=== PATIENT | female | born 1990 | race Caucasian/White ===

== ENCOUNTER 2021-10-31 14:02 | Outpatient (REF) | payer OTHER, SELFPAY ==
[2021-10-31 15:09] LABS: Influenza A PCR NEGATIVE (Negative); Influenza B PCR NEGATIVE (Negative); Resp Syncy Virus RNA Qual PCR NEGATIVE (Negative); SARS COV2 PCR INHOUSE POSITIVE (Negative)
== END 2021-10-31 14:03 | disposition home or self-care (01) ==
LOC: HO.LNP 14:02
PROVIDERS: Visit Provider Internal Medicine
DX: Z20.822 Contact with and (suspected) exposure to COVID-19 (principal); R05.9 Cough, unspecified; R50.9 Fever, unspecified
CPT/HCPCS: 0241U

== ENCOUNTER 2021-11-12 14:08 | Outpatient (REF) | payer OTHER, SELFPAY | END 2021-11-12 14:09 | disposition home or self-care (01) | LOC: HO.XRAY 14:08 | PROVIDERS: PCP Internal Medicine; Visit Provider Internal Medicine | DX: Z13.89 Encounter for screening for other disorder (principal) ==

== ENCOUNTER 2021-11-13 16:21 | Outpatient (REF) | payer OTHER, SELFPAY ==
--- NOTE | ~2021-11-13 | XR_ITS ---
EXAMINATION: XR SINUSES CLINICAL INFORMATION: Sinus pain and congestion COMPARISON: None TECHNIQUE: 4 views of the facial sinuses FINDINGS: Suggestion of mild mucosal thickening of the bilateral maxillary sinuses, left greater than right. Patency of the remaining sinuses. Osseous structures are intact. No acute visible fracture or dislocation. Dental hardware is noted. XR/XR sinus min 3V IMPRESSION: 1. Suggestion of mild mucosal thickening of the bilateral maxillary sinuses, left greater than right. 2. Patency of the remaining sinuses. 3. Osseous structures are intact.
== END 2021-11-13 16:22 | disposition home or self-care (01) ==
LOC: HO.XRAY 16:21
PROVIDERS: PCP Internal Medicine; Visit Provider Internal Medicine
DX: J34.89 Other specified disorders of nose and nasal sinuses (principal); R09.81 Nasal congestion
CPT/HCPCS: 70220

== ENCOUNTER 2025-05-18 10:29 | Outpatient (AMB) | payer OTHER, SELFPAY ==
--- NOTE | 2025-05-18 10:31 | A.OFFPC_ITS ---
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 Still has elevated anxiety levels. Had buspar prescribed On zithromax for tooth infection. She is going in for a multiple hour procedure Reactive airway disease-no formal diagnosis asthma but does require albuterol when she gets sick GERD-On omeprazole ROS see HPI PHYSICAL EXAM: GENERAL: Alert and oriented x 3. NAD EYES: EOMI. Anicteric. HENT: Moist mucous membranes. No scleral icterus. thyroid enlargement LUNGS: Clear to auscultation bilaterally. CARDIOVASCULAR: Regular rate and rhythm. No murmur. No JVD. ABDOMEN: Soft, non-tender +bs EXTREMITIES: No edema. Non-tender. SKIN: No rashes or lesions. Warm. NEUROLOGIC: No focal neurological deficits. CN II-XII grossly intact PSYCHIATRIC: Cooperative. Appropriate mood and affect [facility] Social History Patient Tobacco Use Status: Never used Tobacco e-Cigarette/Vaping Use: Never Used Questionnaire PHQ-9 Over the last 2 weeks, how often have you been bothered by any of the following problems? 1. Little interest or pleasure in doing things: not at all 2. Feeling down, depressed, or hopeless: not at all 3. Trouble falling or staying asleep, or sleeping too much: several days 4. Feeling tired or having little energy: several days 5. Poor appetite or overeating: not at all 6. Feeling bad about yourself - or that you are a failure or have let yourself or your family down: not at all 7. Trouble concentrating on things, such as reading the newspaper or watching television: not at all 8. Moving or speaking so slowly that other people could have noticed. Or the opposite - being so fidgety or restless that you have been moving around a lot more than usual: not at all 9. Thoughts that you would be better off or of hurting yourself in some way: not at all Total score: 2 Depression Screening Interpretation: Negative Depression Screening Done: Yes 47477 - PHQ-9 Billing: Yes Source: Developed by Drs. Zev Hughes, Karena Millard, Chito Amaya and colleagues, with an educational rogelio from [employer]. Thrive Questionnaire Date Thrive assessed: 05/18/25 I am a: Patient What is your living situation today?: I have a steady place to live Within the past 12 months, did the food you bought not last and you didn't have the money to get more?: Never true Within the past 12 months, did you worry whether your food would run out before you got money to buy more?: Never true Do you have trouble paying for medicines?: No Do you have trouble getting transportation to medical appointments?: No Do you have trouble paying your heating and electricity bill?: No Do you have trouble taking care of your child, family member or friend?: No Do you have trouble with day-to-day activities such as bathing, preparing meals, shopping, managing finances, etc.?: No Are you currently unemployed and looking for a job?: No Are you interested in more education?: Yes THRIVE Score: 0 AUDIT C Alcohol Use Questionnaire (AUDIT-C) 1. How often do you have a drink containing alcohol?: Monthly or less 2. How many drinks containing alcohol do you have on a typical day when you are drinking?: 1 or 2 Total Score: 1 BRAD-7 AMB Questionnaire BRAD-7 Date BRAD - 7 assessed: 05/18/25 Feeling nervous, anxious, or on edge: 1 = Several days Not being able to stop or control worryin = Several days Worrying too much about different things: 1 = Several days Trouble relaxin = Several days Being so restless that it is hard to sit still: 1 = Several days Becoming easily annoyed or irritable: 0 = Not at all Feeling afraid as if something awful might happen: 1 = Several days Total BRAD-7 score (0-4 normal; 5-9 mild; 10-14 moderate; 15-21 severe): 6 Source: Developed by Drs. Zev Hughes, Karena Millard, Chito Amaya and colleagues, with an educational rogelio from [employer]. Physical exam (Primary Care) Vital Signs: Last Vital Signs Temp 97.5 F 05/18/25 10:37 Pulse 76 05/18/25 10:37 Resp 16 05/18/25 10:37 BP 98/54 L 05/18/25 10:37 Pulse Ox 98 05/18/25 10:37 Oxygen Delivery Method Room Air 05/18/25 10:37 BMI result Body Mass Index 21.5 Tobacco/Smoking Status: Tobacco use Status Tobacco use date assessed 05/18/25 05/18/25 10:39 Patient Tobacco Use Status Never used Tobacco 05/18/25 10:39 e-Cigarette/Vaping Use Never Used 05/18/25 10:39 PHQ-9: PHQ-9 Score PHQ-9: Total score 2 05/21/25 21:28 Depression Screening Interpretation: Negative Thrive Assessment: Date of Thrive Assessment Date Thrive assessed 05/18/25 05/18/25 11:21 Coding Level of Care Code Est Pt Level 4 (87313) Diagnoses Physical exam Z00.00 Anxiety F41.9 Enlarged thyroid E04.9 Abnormal menses N92.6 Additional Codes PHQ-9 - 50258 - PHQ-9 Billing: Yes ([id number]) Assessment & Plan Assessment & Plan (1) Physical exam: Code(s): Z00.00 - Encounter for general adult medical examination without abnormal findings Category: Medical (2) Anxiety: Code(s): F41.9 - Anxiety disorder, unspecified Category: Medical (3) Enlarged thyroid: Code(s): E04.9 - Nontoxic goiter, unspecified Category: Medical (4) Abnormal menses: Code(s): N92.6 - Irregular menstruation, unspecified Category: Medical Plan 34 year old for physical exam Past medical, surgical, social reviewed Preventive measures for age discussed anxiety suboptimal-trial buspar-she already has this Abnormal 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 Panel 05/18/25 F41.9 - Anxiety disorder, unspecified, N92.6 - Irregular menstruation, unspecified, R35.89 - Other polyuria, Z13.0 - Encounter for screening for diseases of the blood and blood-forming organs and certain disorders involving the immune mechanism, Z13.228 - Encounter for screening for other metabolic disorders Hemoglobin A1c 05/18/25 F41.9 - Anxiety disorder, unspecified, N92.6 - Irregular menstruation, unspecified, R35.89 - Other polyuria, Z13.0 - Encounter for screening for diseases of the blood and blood-forming organs and certain disorders involving the immune mechanism, Z13.228 - Encounter for screening for other metabolic disorders Complete Blood Count Auto Diff 05/18/25 F41.9 - Anxiety disorder, unspecified, N92.6 - Irregular menstruation, unspecified, R35.89 - Other polyuria, Z13.0 - Encounter for screening for diseases of the blood and blood-forming organs and certain disorders involving the immune mechanism, Z13.228 - Encounter for screening for other metabolic disorders LDL Cholesterol Direct 05/18/25 F41.9 - Anxiety disorder, unspecified, N92.6 - Irregular menstruation, unspecified, R35.89 - Other polyuria, Z13.0 - Encounter for screening for diseases of the blood and blood-forming organs and certain disorders involving the immune mechanism, Z13.228 - Encounter for screening for other metabolic disorders TSH reflex Free T4 05/18/25 F41.9 - Anxiety disorder, unspecified, N92.6 - Irregular menstruation, unspecified, R35.89 - Other polyuria, Z13.0 - Encounter for screening for diseases of the blood and blood-forming organs and certain disorders involving the immune mechanism, Z13.228 - Encounter for screening for other metabolic disorders Referrals SPEECH THERAPY TEACHER Referral N92.6 - Irregular menstruation, unspecified, Z12.4 - Encounter for screening for malignant neoplasm of cervix Medications: New omeprazole 20 mg PO DAILY 90 caps 3RF
[2025-05-18 10:37] VITALS: BP 98/54; PULSE 76; RESP 16; TEMP 36.4; O2SAT 98; BMI 21.5
--- OUTSIDE RECORDS SUMMARY | 2025-05-18 11:01 | XMS_ITS | Encounter Summary ---
Author Organization [facility] Address [address] [place] [phone] Phone Care Team Providers Care Tube Lancer Name Role Phone Bhakti Morataya MD Primary Care Provider Unava ilable Encounter Details Date Type Department Care Team (Late st Contact Info) Description 09/09/2010 Documentation EM Family Medicine [address] [place] [address] Family Medicine, Physician [address], [place] [id number] Social History Tobacco Use Types Packs/Day Years Used Date Smoking Tobacco: Never Assessed Comments Unknown Sex and Gender Information Value Date Recorded Sex Assigned at Not on file Legal Sex Female 4:54 PM EDT Gender Identity Not on file Sexual Orientation Not on file documented as of this encounter Plan of Treatment Not on file documented as of this encounter Visit Diagnoses Not on filedocumented in this encounter Care Teams Tube Lancer Relationship Specialty Start Date End Date Bhakti Morataya MD PCP - General 06/12/17 documented as of this encounter
== END 2025-05-18 11:02 | disposition home or self-care (01) ==
LOC: HO.HMCHD 10:29
PROVIDERS: PCP Internal Medicine; Visit Provider Internal Medicine
DX: Z00.00 Encounter for general adult medical examination without abnormal findings (principal); F41.9 Anxiety disorder, unspecified; E04.9 Nontoxic goiter, unspecified; N92.6 Irregular menstruation, unspecified

== ENCOUNTER 2025-05-18 10:29 | Outpatient (REF) | payer OTHER, SELFPAY ==
[2025-05-18 11:21] LABS: MANUAL DIFF FLAG NO
[2025-05-18 11:52] LABS: Hematocrit 39.7 % (37.0-47.0); Hemoglobin 13.0 g/dl (12.0-16.0); Imm Gran Abs Auto 0.01 X10*3/uL (0.00-0.03); Imm Gran Pct Auto 0.2 % (0.0-0.4); Lymphocytes Absolute Auto 1.9 X10*3/uL (1.2-4.9); Mean Corpuscular HGB Conc 32.7 g/dl (31.0-35.0); Mean Corpuscular Hemoglobin 30.9 pg (27.0-33.0); Mean Corpuscular Volume 94.3 fL (80.0-98.0); NRBC Abs Auto 0.000 X10*3/uL (0.0-0.012); NRBC Pct Auto 0.0 /100WBC (0.0-0.2); Platelet Count 258 X10*3/uL (160-400); Red Blood Count 4.21 X10*6/uL (4.20-5.50); White Blood Count 4.2 X10*3/uL (4.8-10.8)
[2025-05-18 12:03] LABS: Hemoglobin A1C 113.1191 umol/L; Total Hemoglobin (HGBA1C) 3379.4435 umol/L
[2025-05-18 12:29] LABS: Alanine Aminotransferase 35 U/L (0-31); Albumin Level 4.0 g/dL (3.5-5.0); Alkaline Phosphatase 61 U/L (39-117); Anion Gap 9 (12-20); Aspartate Amino Transferase 24 U/L (5-31); Blood Urea Nitrogen 16 mg/dL (9-16); Calcium 8.6 mg/dL (8.4-10.2); Carbon Dioxide 27 mmol/L (22-29); Chloride 111 mmol/L (96-108); Estimated Glomerular Filt Rate > 60; Potassium 3.6 mmol/L (3.3-5.1); Sodium 143 mmol/L (135-145); Total Protein 6.5 g/dL (6.5-8.0)
== END 2025-05-18 10:30 | disposition home or self-care (01) ==
LOC: HO.LAB 10:29
PROVIDERS: PCP Internal Medicine; Visit Provider Internal Medicine
DX: Z00.00 Encounter for general adult medical examination without abnormal findings (principal); F41.9 Anxiety disorder, unspecified; E04.9 Nontoxic goiter, unspecified; N92.6 Irregular menstruation, unspecified; R35.89 Other polyuria; Z13.0 Encounter for screening for diseases of the blood and blood-forming organs and certain disorders involving the immune mechanism; Z13.228 Encounter for screening for other metabolic disorders; Z13.31 Encounter for screening for depression; Z13.39 Encounter for screening examination for other mental health and behavioral disorders
CPT/HCPCS: 36415; 80053; 83036; 83721; 84443; 85025; 96127; 99212

== ENCOUNTER 2025-08-24 10:52 | Outpatient (AMB) | payer OTHER, SELFPAY ==
[2025-08-24 09:26] VITALS: BP 120/72; PULSE 74; TEMP 36.3; O2SAT 99; BMI 36.5
--- NOTE | 2025-08-24 09:26 | A.OFFPC_ITS ---
Vital Signs 08/24/25 09:26 Height 5 ft 10 in Weight 254 lb 2 oz BMI 36.5 BP 120/72 Blood Pressure Location Rt brachial Position Sitting Pulse 74 Pulse Source Pulse Oximeter Temp 97.3 F Temp Source Temporal Artery Scan Pulse Oximetry (%) 99 Oxygen Delivery Method Room Air Intake Visit Reasons: 3 month f/u Cook Specialty Foreign Food Required: No Accompanied by: Mother Allergies amoxicillin (From Augmentin) Allergy (Intermediate, Verified 08/24/25 09:27) Rash clavulanic acid (From Augmentin) Allergy (Intermediate, Verified 08/24/25 09:27) Rash Medication List - Last Reconciled 09/10/25 by ALBERTO Briceño albuterol sulfate 90 mcg/actuation 2 inhalations inhalation Q6H PRN buspirone 10 mg PO BID citalopram 40 mg PO DAILY ibuprofen 800 mg PO TID inhalational spacing device (Aerochamber Mechanical Vent) As directed omeprazole 20 mg PO DAILY Tobacco use date assessed: 08/24/25 Dental Screening Dental Screen Date: 08/24/25 Did you have a dental visit in the last 12 months?: Yes Did you have a dental problem in the last 6 months where you did not have access to dental care?: No HPI HPI Comments History of Present Illness Details The patient is a 34-year-old female with Asthma, anxiety/MDD, insomnia, GERD and Obesity presenting to establish care and follow up of asthma management, anxiety, and menstrual irregularities. The patient has a history of asthma, primarily requiring an albuterol inhaler during the summer and fall seasons. She reports needing a refill for her inhaler and an aero chamber as the current inhaler is old. The patient experiences anxiety with fluctuating levels, and she is currently on citalopram. There is a discussion about starting buspirone, but the patient expresses fear of trying new medication. She has not yet engaged with a therapist but is actively seeking one. The patient reports a tooth infection following dental work, which included upper and lower teeth repairs. She was prescribed azithromycin for the infection and has been using ibuprofen for pain management. The patient takes omeprazole daily for gastroesophageal reflux disease (GERD). She is advised to continue daily use if experiencing heartburn more than two to three times a week to prevent complications such as strictures or cancer. Menstrual irregularities are noted, with periods occurring every two to three months. The patient is scheduled for a gynecological evaluation to investigate potential causes, including polycystic ovarian syndrome. The patient describes occasional gastrointestinal symptoms, including nausea and diarrhea, possibly linked to anxiety or dietary factors. There is a consideration of irritable bowel syndrome, and the patient is advised to monitor symptoms and report any increase in frequency. Medical History: - Asthma - Anxiety - Gastroesophageal reflux disease (GERD) Surgical History: - Dental repairs (upper and lower teeth) She had labs done in May. She has an appointment pending with ACCOUNTANT CONTROLLER Patient was informed and verbally consented to the use of an ambient scribe for clinic note documentation during this visit. [facility] Medical History (Updated 09/10/25 @ 22:52 by ALBERTO Briceño) Asthma GERD (gastroesophageal reflux disease) IBS (irritable bowel syndrome) Obesity (BMI 35.0-39.9 without comorbidity) Family History (Updated 08/24/25 @ 11:05 by Elba Nixon MA) Mother No problems noted. Father No problems noted. Social History Housing: House Patient Tobacco Use Status: Never used Tobacco e-Cigarette/Vaping Use: Never Used service: No Current occupational status: employed Cognitive needs: No Hearing needs: No Vision needs: Yes (Reading glasses) Questionnaire PHQ-9 Over the last 2 weeks, how often have you been bothered by any of the following problems? 1. Little interest or pleasure in doing things: not at all 2. Feeling down, depressed, or hopeless: several days (some anxiety) 3. Trouble falling or staying asleep, or sleeping too much: several days (sometimes sleepling too much and sometimes trouble falling asleep. ) 4. Feeling tired or having little energy: not at all 5. Poor appetite or overeating: not at all 6. Feeling bad about yourself - or that you are a failure or have let yourself or your family down: not at all 7. Trouble concentrating on things, such as reading the newspaper or watching television: not at all 8. Moving or speaking so slowly that other people could have noticed. Or the opposite - being so fidgety or restless that you have been moving around a lot more than usual: not at all 9. Thoughts that you would be better off or of hurting yourself in some way: not at all Total score: 2 Depression Screening Interpretation: Negative Depression Screening Done: Yes Source: Developed by Drs. Zev Hughes, Chito Jones and colleagues, with an educational rogelio from [employer]. Thrive Questionnaire Date Thrive assessed: 08/24/25 I am a: Patient Within the past 12 months, did the food you bought not last and you didn't have the money to get more?: Never true Within the past 12 months, did you worry whether your food would run out before you got money to buy more?: Never true Do you have trouble paying for medicines?: No Do you have trouble getting transportation to medical appointments?: No Do you have trouble paying your heating and electricity bill?: No Do you have trouble taking care of your child, family member or friend?: No Do you have trouble with day-to-day activities such as bathing, preparing meals, shopping, managing finances, etc.?: No Are you currently unemployed and looking for a job?: No Are you interested in more education?: No THRIVE Score: 0 AUDIT C Alcohol Use Questionnaire (AUDIT-C) 1. How often do you have a drink containing alcohol?: Monthly or less 2. How many drinks containing alcohol do you have on a typical day when you are drinking?: 1 or 2 3. How often do you have six or more drinks on one occasion?: Less than monthly Total Score: 2 BRAD-7 AMB Questionnaire BRAD-7 Date BRAD - 7 assessed: 08/24/25 Feeling nervous, anxious, or on edge: 0 = Not at all Not being able to stop or control worryin = Not at all Worrying too much about different things: 0 = Not at all Trouble relaxin = Not at all Being so restless that it is hard to sit still: 0 = Not at all Becoming easily annoyed or irritable: 0 = Not at all Feeling afraid as if something awful might happen: 0 = Not at all Total BRAD-7 score (0-4 normal; 5-9 mild; 10-14 moderate; 15-21 severe): 0 Source: Developed by Karena Rosas Kurt Kroenke and colleagues, with an educational rogelio from [employer]. Review of Systems Narrative - Respiratory: Reports asthma symptoms primarily in summer and fall. Denies current respiratory distress. - Psychiatric: Reports fluctuating anxiety levels. Denies current use of buspirone. - Gastrointestinal: Reports nausea and diarrhea occasionally. Denies consistent gastrointestinal distress. - Reproductive: Reports menstrual irregularities with periods every two to three months. Denies pain during menstruation. Physical exam (Primary Care) Vital Signs: Last Vital Signs Temp 97.3 F 08/24/25 09:26 Pulse 74 08/24/25 09:26 BP 120/72 08/24/25 09:26 Pulse Ox 99 08/24/25 09:26 Oxygen Delivery Method Room Air 08/24/25 09:26 BMI result Body Mass Index 36.5 GENERAL Well developed, obese, in no apparent distress HEENT Head-Normocephalic Eyes- PERRLA, EOMI, Conjuctiva clear, lids WNL Ears- Canals clear, TMs WNL Mouth/Throat-No lesions, no erythema, no exudate Neck- Supple, No lymphadenopathy, thyroid WNL RESPIRATORY Normal I:E, Clear to auscultation CARDIOVASCULAR Regular, rate and rhythm, No murmurs or rubs GASTROINTESTINAL Soft, nontender, normal bowel sounds, no masses MUSCULOSKELETAL Back- nontender Joints- no swelling or deformity NEUROLOGICAL Gait normal PSYCHIATRIC Oriented to person, place and time Mood and affect anxiety and depression Appearance WNL Speech WNL Thought processes WNL Tobacco/Smoking Status: Tobacco use Status Tobacco use date assessed 08/24/25 08/24/25 09:28 Patient Tobacco Use Status Never used Tobacco 08/24/25 09:28 e-Cigarette/Vaping Use Never Used 08/24/25 09:28 PHQ-9: PHQ-9 Score PHQ-9: Total score 2 08/24/25 11:07 Depression Screening Interpretation: Negative Thrive Assessment: Date of Thrive Assessment Date Thrive assessed 08/24/25 08/24/25 09:28 Coding Level of Care Code Established Pt Est Pt Level 4 (59914) Patient Type Established Diagnoses Anxiety F41.9 Abnormal menses N92.6 Mild intermittent asthma without complication J45.20 Asthma severity: mild Asthma persistence: intermittent Asthma complication type: uncomplicated GERD (gastroesophageal reflux disease) K21.9 IBS (irritable bowel syndrome) K58.9 Obesity (BMI 35.0-39.9 without comorbidity) E66.9 Time Spent (min) 30 Comment Time spent on chart review, medication reconciliation, H&P, Patient education and orders Assessment & Plan Assessment & Plan (1) Anxiety: Code(s): F41.9 - Anxiety disorder, unspecified Category: Medical Plan: The patient is currently on citalopram for anxiety management. There is a consideration for starting buspirone, but the patient is hesitant due to fear of new medications. She is advised to continue seeking therapy for better management of anxiety symptoms. Patient to follow up in 6 months or sooner if symptoms persist or worsen. (2) Abnormal menses: Code(s): N92.6 - Irregular menstruation, unspecified Category: Medical Plan: The patient is scheduled for a gynecological evaluation to investigate menstrual irregularities, with consideration of polycystic ovarian syndrome as a potential cause. (3) Asthma: Code(s): J45.909 - Unspecified asthma, uncomplicated Category: Medical Qualifiers: Asthma severity: mild Asthma persistence: intermittent Asthma complication type: uncomplicated Qualified Code(s): J45.20 - Mild intermittent asthma, uncomplicated Plan: The patient requires a refill of her albuterol inhaler and an aero chamber for asthma management, particularly during the summer and fall seasons when symptoms are more prevalent. (4) GERD (gastroesophageal reflux disease): Code(s): K21.9 - Gastro-esophageal reflux disease without esophagitis Category: Medical Plan: The patient is advised to continue taking omeprazole daily if experiencing frequent heartburn to prevent complications such as esophageal strictures or cancer. If heartburn is less frequent, she may use it as needed. (5) IBS (irritable bowel syndrome): Code(s): K58.9 - Irritable bowel syndrome, unspecified Category: Medical Plan: The patient is advised to monitor gastrointestinal symptoms, including nausea and diarrhea, which may be linked to anxiety or dietary factors. She should report any increase in frequency for further evaluation. (6) Obesity (BMI 35.0-39.9 without comorbidity): Comment: BMI today was 36.5 Code(s): E66.9 - Obesity, unspecified Category: Medical Plan: Discussed the health risks of obesity with the patient. Reviewed benefits of even moderate weight loss with the patient. Patient will gradually try and increase exercise to 30-40 min 5-7 times per week. We discussed the patient add ing more fruits and vegetables to their diet. Will monitor weight and follow up in 6 months. Plan During the visit, we discussed the management of asthma, including the need for a refill of the albuterol inhaler and aero chamber. We also talked about anxiety management, with the patient currently on citalopram and considering buspirone. The importance of therapy was emphasized. For the tooth infection, the patient is on azithromycin and ibuprofen, with a recommendation for dental follow-up if symptoms persist. We reviewed the use of omeprazole for GERD and the need for daily use if heartburn is frequent. Menstrual irregularities are being evaluated with a gynecological appointment scheduled. We also discussed monitoring gastrointestinal symptoms that may suggest irritable bowel syndrome. Medications: New inhalational spacing device (Aerochamber Mechanical Vent) As directed 50 ea 0RF Changed From albuterol sulfate 90 mcg/actuation 2 inhalations inhalation Q6H PRN To albuterol sulfate 90 mcg/actuation 2 inhalations inhalation Q6H PRN 1 ea 3RF shortness of breath or wheezing Patient Instructions: - Refill albuterol inhaler and obtain an aero chamber for asthma management. - Continue citalopram for anxiety and seek therapy. - Complete the course of azithromycin and use ibuprofen as needed for tooth infection pain. - Take omeprazole daily if experiencing frequent heartburn. - Attend scheduled gynecological evaluation for menstrual irregularities. - Monitor gastrointestinal symptoms and report any increase in frequency.
--- OUTSIDE RECORDS SUMMARY | 2025-08-24 13:26 | XMS_ITS | Clinical Summary ---
Author Organization [facility] Address [address] [place] [id number] Phone Care Team Providers Care Health Facilities Surveyor Name Role Phone Bhakti Morataya MD Primary Care Provider Unava ilable Immunizations Immunization Administration Dates Next Due DTaP 5 12/02/1997, 4,08/01/1993,06/01,04/01/1993 HPV, Quadrivalent 11/17/2013,06/21/2012,01/15/20 12 Hep B, ped/adol 11/01/1993,04/01/1993,1992 Hib (HbOC) 07/02/1994, 3,06/01/1993,04/01 IPV 12/02/1997, 4,06/01/1993,04/01 MMR 12/02/1997,06/01/1994 Meningococcal Conj (Menactra) MCV4P 11/16/2007 Td (adult) (MBL), 2 Lf tetan us toxoid, PF, adsorbed 02/05/2005 Tdap 04/23/2011 Varicella 08/24/1997 Family History Relation Name Status Comments Brother Alive Brother: Health y Father Alive Father: Hyperte nsion Maternal Grandfather Alive Materna l uncle: Langerhand Syndrome,Asbestosis, Aortic Regurgitation Maternal Grandmother Materna l grandmother: , Cancer -ovarian Mother Alive Mother: Asthma Paternal Grandfather Alive Paterna l uncle: Myocardial infarction Paternal Grandmother Paterna l grandmother: , Diabetes mellitus Sister Alive Sister: GERD,Co nstipation,IBS Social History Tobacco Use Types Packs/Day Years Used Date Smoking Tobacco: Never Comments:Never smoker Comments Unknown Sex and Gender Information Value Date Recorded Sex Assigned at Not on file Legal Sex Female 4:54 PM EDT Gender Identity Not on file Sexual Orientation Not on file Last Filed Vital Signs Vital Sign Reading Time Taken Comments Blood Pressure 102/70 08/24/2014 12:00 AM EDT Pulse 88 08/24/2014 12:00 AM EDT Temperature 37.1 C (98.7 F) 08/26/2014 12:00 AM EDT Respiratory Rate - - Oxygen Saturation 96% 08/26/2014 12:00 AM EDT Inhaled Oxygen Concentration - - Weight 56.7 kg (125 lb) 08/31/2014 12:00 AM EDT Height 175.9 cm (5' 9.25 ) 08/31/2014 12:00 AM E DT Body Mass Index 18.33 08/31/2014 12:00 AM EDT Plan of Treatment Health Maintenance Due Date Last Done Comments Varicella Vaccines (2 of 2 - 2-dose childhood series) 12/30/1997 08/24/1997 DTaP,Tdap,and Td Vaccines (7 - Td or Tdap) 04/23/2021 04/23/2011, 02/05/2005, 12/02/1997, Additional history exists Influenza Vaccines (#1) 2025 COVID-19 Vaccine ( season) 2025 Hepatitis B Vaccines Completed 11/01/1993, 04/01/1993, 1992 HIB Vaccines Completed 07/02/1994, 07/05, 06/01/1993, Additional history exists IPV Vaccines Completed 12/02/1997, 06/04, 06/01/1993, Additional history exists MMR Vaccines Completed 12/02/1997, 06/01/1994 Meningococcal Vaccine Aged Out 11/16/2007 No poncho jamar eligible based on patient's age to complete this topic HPV Vaccines Completed 11/17/2013, 06/03, 01/15/2012 Hepatitis A Vaccines Aged Out No long er eligible based on patient's age to complete this topic Men B Vaccine Aged Out No longer elig ible based on patient's age to complete this topic Pneumococcal Vaccine Aged Out No long er eligible based on patient's age to complete this topic Care Teams Health Facilities Surveyor Relationship Specialty Start Date End Date Bhakti Morataya MD PCP - General 06/12/17
--- OUTSIDE RECORDS SUMMARY | 2025-08-24 13:26 | XMS_ITS | Encounter Summary ---
Author Organization [facility] Address [address] [place] [phone] Phone Care Team Providers Care Nailing Machine Operator Automatic Name Role Phone Bhakti Morataya MD Primary Care Provider Unava ilable Encounter Details Date Type Department Care Team (Late st Contact Info) Description 09/09/2010 Documentation [facility] [address] [place] [address] Family Medicine, Physician [address] [place], [place] [id number] Social History Tobacco Use Types Packs/Day Years [...] on filedocumented in this encounter Care Teams Nailing Machine Operator Automatic Relationship Specialty Start Date End Date Bhakti Morataya MD PCP - General 06/12/17 documented as of this encounter
--- OUTSIDE RECORDS SUMMARY | 2025-08-24 13:26 | XMS_ITS | Encounter Summary ---
Author Organization [facility] Address [address] [place] [phone] Phone Care Team Providers Care Fire Crew Specialist Name Role Phone Bhakti Morataya MD Primary Care Provider Unava ilable Encounter Details Date Type Department Care Team (Late st Contact Info) Description 08/30/2014 Documentation [facility] [place] Family Medicine [address] [place] [address] Family Medicine, Physician [address] [place] [address] Social History Tobacco Use Types Packs/Day Years [...] on filedocumented in this encounter Care Teams Fire Crew Specialist Relationship Specialty Start Date End Date Bhakti Morataya MD PCP - General 06/12/17 documented as of this encounter
--- OUTSIDE RECORDS SUMMARY | 2025-08-24 13:26 | XMS_ITS | Encounter Summary ---
Author Organization [facility] Address [address] [place] [phone] Phone Care Team Providers Care Tank Builder Name Role Phone Bhakti Morataya MD Primary Care Provider Unava ilable Encounter Details Date Type Department Care Team (Late st Contact Info) Description 08/30/2014 [place]ation [facility] [address] [place] [address] Family Medicine, Physician [address] [place] [address] Social History Tobacco Use Types Packs/Day Years [...] on filedocumented in this encounter Care Teams Tank Builder Relationship Specialty Start Date End Date Bhakti Morataya MD PCP - General 06/12/17 documented as of this encounter
--- OUTSIDE RECORDS SUMMARY | 2025-08-24 13:26 | XMS_ITS | Encounter Summary ---
Author Organization [facility] Address [address] [place] [phone] Phone Care Team Providers Care Credit Administration Specialist Name Role Phone Bhakti Morataya MD Primary Care Provider Unava ilable Encounter Details Date Type Department Care Team (Late st Contact Info) Description 06/18/2017 Conversion Encounter [facility] [address] [address] Social History Tobacco Use Types Packs/Day Years [...] on filedocumented in this encounter Care Teams Credit Administration Specialist Relationship Specialty Start Date End Date Bhakti Morataya MD PCP - General 06/12/17 documented as of this encounter
== END 2025-08-24 11:38 | disposition home or self-care (01) ==
LOC: HO.HMCHD 10:52
PROVIDERS: PCP Internal Medicine; Visit Provider Physician Assistant Medical
DX: F41.9 Anxiety disorder, unspecified (principal); N92.6 Irregular menstruation, unspecified; J45.20 Mild intermittent asthma, uncomplicated; K21.9 Gastro-esophageal reflux disease without esophagitis; K58.9 Irritable bowel syndrome, unspecified; E66.9 Obesity, unspecified

== ENCOUNTER → 2025-08-24 10:52 | Outpatient (BNVA) | payer OTHER, SELFPAY | PROVIDERS: PCP Internal Medicine; Visit Provider Physician Assistant Medical | DX: K21.9 Gastro-esophageal reflux disease without esophagitis (principal); N92.6 Irregular menstruation, unspecified; F41.9 Anxiety disorder, unspecified; K04.7 Periapical abscess without sinus; J45.20 Mild intermittent asthma, uncomplicated; K58.9 Irritable bowel syndrome, unspecified; E66.9 Obesity, unspecified; Z68.36 Body mass index [BMI] 36.0-36.9, adult | CPT/HCPCS: 99212 ==